=== PATIENT | female | born 1985 | race Caucasian/White ===

== ENCOUNTER 2018-06-13 21:30 | Emergency (ER) | payer SELFPAY ==
[~2018-06-13] VITALS: Ht 162.6 cm; Wt 60.0 kg
[2018-06-14] MEDS ORDERED: HYDROCODONE/ACETAMINOPHEN 5/325MG TABLET PO STA (00:10)
[2018-06-14] MEDS ORDERED: TETANUS, DIPHTHERIA, PERTUSSIS VAC/PF 0.5ML (>7YR OLD) IM ONE (00:15)
[2018-06-14] MEDS ORDERED: LIDOCAINE HCL/PF 1% 10 MG/ML 5ML VIAL IJ ONE (00:15)
[2018-06-14] MEDS ORDERED: BACITRACIN ZINC OINT UDPKT TOP ONE (00:15)
[2018-06-14 01:39] LABS: HCG SCREEN NEGATIVE
[2018-06-14 04:10] VITALS: BP 103/70
== END 2018-06-14 04:10 | disposition home or self-care (01) ==
LOC: ER 21:30
DX: S01.01XA Laceration without foreign body of scalp, initial encounter (principal); V03.90XA Pedestrian on foot injured in collision with car, pick-up truck or van, unspecified whether traffic or nontraffic accident, initial encounter; Y93.01 Activity, walking, marching and hiking; Y92.9 Unspecified place or not applicable; Z23 Encounter for immunization
CPT/HCPCS: 12001; 70450; 84703; 90471; 90715; 99284; J3490

== ENCOUNTER 2018-06-29 16:39 | Emergency (ER) | payer SELFPAY ==
[~2018-06-29] VITALS: Ht 160 cm; Wt 66.0 kg
[2018-06-29 16:47] VITALS: BP 145/92
== END 2018-06-29 18:28 | disposition home or self-care (01) ==
LOC: ER 16:39
DX: S09.90XD Unspecified injury of head, subsequent encounter (principal); V49.88XD Car occupant (driver) (passenger) injured in other specified transport accidents, subsequent encounter
CPT/HCPCS: 99281